=== PATIENT | female | born 1995 | race African-American/Black ===

== ENCOUNTER 2021-11-20 01:20 | Emergency (ER) | payer OTHER ==
[~2021-11-20] VITALS: Ht 157.5 cm; Wt 70.3 kg
[2021-11-20 01:24] VITALS: BP 138/63
--- NOTE | 2021-11-20 01:24 | NUR ---
TO BED AMBULATORY
--- NOTE | 2021-11-20 01:42 | NUR ---
Patient being evaluated by physician at bedside.
--- NOTE | 2021-11-20 01:47 | NUR ---
AMBULATED TO BR FOR UA
--- NOTE | 2021-11-20 02:12 | NUR ---
flu and covid swabs collected. specimens given to palomo Hinson tech
[2021-11-20 02:30] VITALS: BP 138/63
--- NOTE | 2021-11-20 02:30 | NUR ---
Patient discharged with v/s stable. Written and verbal after care instructions given and explained. Patient verbalized understanding. Ambulatory with steady gait. All questions addressed prior to discharge. Advised to follow up with PMD.
== END 2021-11-20 02:30 | disposition home or self-care (01) ==
LOC: MED 01:20
DX: R53.83 Other fatigue (principal); Z20.822 Contact with and (suspected) exposure to COVID-19; G47.00 Insomnia, unspecified; H53.8 Other visual disturbances
CPT/HCPCS: 81002; 81025; 99283